=== PATIENT | female | born 1980 | race Caucasian/White ===

== ENCOUNTER → 2017-07-26 | Outpatient (CLI) | payer OTHER ==
[~2017-07-26] MED LIST: ACET325 PO; ALBU90OI INH; AZIT500; Allergy Medicin25 MG PO; B12 INJECTION; CHOL10002 PO; CLOP75; CYAN1000I IM; Calcitriol0.25 MCG PO; Cough Syru100 MG/5 M PO; DILAUDID PO; DIPATR PO; DOXY100 PO; ENOX30I; FAMO20 PO; FENT100TP; FENT50TP; Ferrous Sulfat325 M2; GABA300; GABA300 PO; HYDMOR2 PO; HYDMOR4; HYDMOR4 PO; HYDMOR8; HYDMOR8 PO; LEVFLO250 PO; MAGCHL64ER PO; MECL12.5 PO; MEDR150I; MEDR150I IM; METH5 PO; METO10 PO; METO25ER PO; NITR100CA PO; Nitrofurantoin50 MG PO; OXYACE5T PO; OXYB5ER PO; POTA20LUD PO; PRAM.125; PRAM.125 PO; PRAM.5; PRAM.5 PO; PROM25; PROM25 PO; Prilosec20 MG PO; ROPI.25 PO; SODBIC650 PO; STIOLTO RESPIMAT4 GM INH; TAMS.4ER PO; TRAM50 PO; VITAMIN B 12 SL; VITAMIN B12-FO1 EACH PO; VITAMIN D IM; ZOLP10 PO
[2017-07-26 18:48] LABS: U Amphetamine Screen Not Detected; U Barbituate Screen Not Detected; U Benzodiazapine Screen Not Detected; U Buprenorphine Screen Not Detected; U Cannabinoids Screen Not Detected; U Cocaine Screen Not Detected; U Methadone Screen DETECTED; U Methamphetamine Screen Not Detected; U Opiates Screen Not Detected; U Oxycodone Screen Not Detected; U Phencyclidine Screen Not Detected; U Propoxyphene Screen Not Detected
== END ==
LOC: LAB 16:14
PROVIDERS: Family Medicine
DX: G89.4 Chronic pain syndrome (principal)

== ENCOUNTER → 2017-10-11 | Outpatient (CLI) | payer OTHER ==
[2017-10-11 11:17] LABS: Albumin, Blood 3.9 g/dL (3.4-5.0); Albumin/Globulin Ratio 1.2 (0.8-1.8); Bilirubin, Total 1.3 mg/dL (0.1-1.0); Bun/Creatinine Ratio 15.9 (12.0-20.0); Calcium, Blood 8.5 mg/dL (8.5-10.1); Creatinine, Blood 2.07 mg/dL (0.40-1.00); Globulin, Blood 3.3 g/dL (2.2-4.0); Total Protein, Blood 7.2 g/dL (6.4-8.2)
== END | disposition home or self-care (01) ==
LOC: LAB 10:39
PROVIDERS: Internal Medicine Hematology & Oncology
DX: M81.8 Other osteoporosis without current pathological fracture (principal); N28.9 Disorder of kidney and ureter, unspecified
CPT/HCPCS: 80053

== ENCOUNTER 2017-10-24 17:21 | Observation (INO) | payer OTHER ==
[~2017-10-24] VITALS: Ht 157.5 cm; Wt 40.0 kg
[~2017-10-24 17:21] MED LIST changes: -MAGCHL64ER PO; -STIOLTO RESPIMAT4 GM INH
[2017-10-24] MEDS ORDERED: MAGCHL64ER PO (17:37)
[2017-10-24] MEDS ORDERED: PROM25 PO (17:38)
[2017-10-24] MEDS ORDERED: STIOLTO RESPIMAT4 GM INH (17:39)
[2017-10-24 18:47] LABS: BASOPHILS ABSOLUTE AUTO 0.04 K/mm3 (0.00-0.23); BASOPHILS PERCENT AUTO 0 % (0-2); EOSINOPHILS ABSOLUTE AUTO 0.21 K/mm3 (0.00-0.68); EOSINOPHILS PERCENT AUTO 1 % (0-6); Hematocrit 41.8 % (33.0-51.0); Hemoglobin 13.1 g/dL (11.5-16.0); IMMATURE GRAN ABSOLUTE AUTO 0.06 K/mm3 (0.00-0.10); IMMATURE GRAN PERCENT AUTO 0 % (0-1); LYMPHOCYTES ABSOLUTE AUTO 2.28 K/mm3 (0.84-5.20); LYMPHOCYTES PERCENT AUTO 15 % (21-46); MONOCYTES ABSOLUTE AUTO 0.72 K/mm3 (0.16-1.47); MONOCYTES PERCENT AUTO 5 % (4-13); Mean Corpuscular HGB 21.1 pg (26.0-34.0); Mean Corpuscular HGB Conc 31.3 g/dL (31.5-36.5); Mean Platelet Volume 11.4 fL (9.1-12.4); NEUTROPHILS ABSOLUTE AUTO 11.75 K/mm3 (1.96-9.15); NEUTROPHILS PERCENT AUTO 78 % (41-73); Platelet Count 539 K/mm3 (150-400); RDW Coefficient Variation 18.3 % (11.7-14.2); White Blood Cell Count 15.06 K/mm3 (4.00-11.30)
[2017-10-24 18:49] LABS: Mean Corpuscular Volume 67 fL (80-100)
[2017-10-24 19:24] LABS: Albumin, Blood 4.5 g/dL (3.4-5.0); Bun/Creatinine Ratio 21.4 (12.0-20.0); Calcium, Blood 7.7 mg/dL (8.5-10.1); Creatinine, Blood 2.85 mg/dL (0.40-1.00); Globulin, Blood 4.6 g/dL (2.2-4.0); Magnesium, Blood 2.5 mg/dL (1.6-2.4); Phosphorus, Blood 6.4 mg/dL (2.5-4.9); Potassium, Blood 4.1 mmol/L (3.5-5.5); Total Protein, Blood 9.1 g/dL (6.4-8.2)
[2017-10-24 19:27] LABS: Thyroid Stimulating Hormone 1.3 uIU/mL (0.360-4.800)
[2017-10-25 04:45] LABS: Source, Urine Clean Catch
[2017-10-25 05:19] LABS: Bilirubin, Urine Neg (Neg); Blood, Urine 3+ (Neg); Glucose Qualitative, Urine Neg (Neg); Ketones, Urine Neg (Neg); Leukocyte Esterase, Urine Neg (Neg); Nitrite, Urine Neg (Neg); Protein, Urine 2+ (Neg); Urobilinogen, Urine NORM (Normal)
[2017-10-25 05:20] LABS: Appearance, Urine Clear (Clear); Color, Urine Pale Yellow (P-Yellow)
[2017-10-25 05:26] LABS: White Blood Cells, Urine 0-2 /hpf (0-5)
[2017-10-25 05:27] LABS: Squamous Epithelial Cells Many /hpf (Few)
[2017-10-25 05:28] LABS: Bacteria Mod /hpf; Granular Casts 0-2 /lpf (0); Mucus Light (0-Heavy)
[2017-10-25 06:02] LABS: BASOPHILS ABSOLUTE AUTO 0.05 K/mm3 (0.00-0.23); BASOPHILS PERCENT AUTO 1 % (0-2); EOSINOPHILS ABSOLUTE AUTO 0.45 K/mm3 (0.00-0.68); EOSINOPHILS PERCENT AUTO 4 % (0-6); Hematocrit 32.5 % (33.0-51.0); Hemoglobin 10.2 g/dL (11.5-16.0); IMMATURE GRAN ABSOLUTE AUTO 0.04 K/mm3 (0.00-0.10); IMMATURE GRAN PERCENT AUTO 0 % (0-1); LYMPHOCYTES ABSOLUTE AUTO 3.08 K/mm3 (0.84-5.20); LYMPHOCYTES PERCENT AUTO 28 % (21-46); MONOCYTES ABSOLUTE AUTO 0.68 K/mm3 (0.16-1.47); MONOCYTES PERCENT AUTO 6 % (4-13); Mean Corpuscular HGB 21.1 pg (26.0-34.0); Mean Corpuscular HGB Conc 31.4 g/dL (31.5-36.5); Mean Corpuscular Volume 67 fL (80-100); NEUTROPHILS PERCENT AUTO 61 % (41-73); Platelet Count 390 K/mm3 (150-400); RDW Coefficient Variation 16.5 % (11.7-14.2); RDW Standard Deviation 37.5 fL (35.1-46.3); Red Blood Cell Count 4.84 M/mm3 (3.80-5.20)
[2017-10-25 06:38] LABS: Albumin, Blood 3.2 g/dL (3.4-5.0); Bun/Creatinine Ratio 21.7 (12.0-20.0); Calcium, Blood 7.2 mg/dL (8.5-10.1); Creatinine, Blood 2.58 mg/dL (0.40-1.00); Globulin, Blood 3.2 g/dL (2.2-4.0); Potassium, Blood 3.7 mmol/L (3.5-5.5)
[2017-10-25 06:43] LABS: Total Protein, Blood 6.4 g/dL (6.4-8.2)
[2017-10-26 04:38] LABS: Bun/Creatinine Ratio 17.1 (12.0-20.0); Calcium, Blood 6.9 mg/dL (8.5-10.1); Creatinine, Blood 2.11 mg/dL (0.40-1.00); Potassium, Blood 3.3 mmol/L (3.5-5.5)
== END 2017-10-26 13:00 | disposition home or self-care (01) ==
LOC: ER 17:21 → MEDS 17:22 → SURS 17:22 → ER 21:56 → SURS 22:24
PROVIDERS: Emergency Medicine; Internal Medicine
DX: N17.9 Acute kidney failure, unspecified (principal); N18.3 Chronic kidney disease, stage 3 (moderate); E86.0 Dehydration; K85.90 Acute pancreatitis without necrosis or infection, unspecified; R06.00 Dyspnea, unspecified; F17.210 Nicotine dependence, cigarettes, uncomplicated; Z79.899 Other long term (current) drug therapy
CPT/HCPCS: 36415; 71045; 76770; 80048; 80053; 81001; 83690; 83735; 84100; 84443; 84702; 85025; 94760; 96361; 96374; 96375; 96376; 99285; G0378; J0610; J2405; J7030; J7120